=== PATIENT | female | born 1990 | race Caucasian/White ===

== ENCOUNTER 2018-04-21 21:11 | Emergency (ER) | payer SELFPAY ==
[2018-04-21 21:12] VITALS: BP 116/80; PULSE 74; RESP 18; TEMP 37; O2SAT 98; BMI 22.8
[2018-04-21 22:22] LABS: Bacteria 0 SEEN /hpf (None Seen); Mucous, Urine 0 SEEN /hpf (<or=2+); Squamous Epithelial Cells - UA 0 SEEN /hpf (5-10)
[2018-04-21 22:28] LABS: Color, Urine Yellow (Yellow); Glucose, Dipstick Normal (Normal); Ketone-Dipstick 50 mg/dl (Negative); Leukocyte Esterase-Dipstick Negative /ul (Negative); Nitrite-Dipstick Negative (Negative); Occult Blood-Urine 10 /ul (Negative); Protein-Dipstick Negative (Negative); Urine Bilirubin Dipstick Negative (Negative); Urine Clarity Clear (Clear); Urine Urobilinogen Normal (Normal)
[2018-04-21 22:32] LABS: Absolute Lymphocyte Count 0.69 X10^3/ul (0.83-4.51); Absolute Neutrophil Count 7.7 X10^3/uL (2.0-7.7); Basophil# 0.01 X10^3/uL; Basophil% 0.1 % (0-1); Hematocrit 36.9 % (37-47); Hemoglobin 12.4 g/dl (12.0-15.0); Lymphocyte # 0.69 X10^3/ul (4.0); Lymphocyte % 7.9 % (19-41); Mean Corp Hgb Conc 33.6 g/gl (32-36); Mean Corpuscular Hgb 28.5 pg (27.0-32.0); Mean Corpuscular Volume 84.8 fL (81-99); Mean Platelet Vol. 9.6 fl (6.2-12.0); Monocyte# 0.37 X10^3/uL; Monocyte% 4.2 % (0-10); Neutrophil # 7.65 X10^3/uL (2.7-7.7); Neutrophil % 87.8 % (47-70); POSITIVE COUNT NO; POSITIVE DIFFERENTIAL NO; POSITIVE MORPHOLOGY NO; Platelet Count 209 K/mm3 (150-450); RBC Distribution Width CV 14.6 % (11.6-14.6); RBC Distribution Width SD 45.4 fl (35.1-43.9); Red Blood Count 4.35 M/mm3 (4.2-5.4); White Blood Count 8.7 K/mm3 (4.4-11.0)
[2018-04-21] MEDS: 0.9% Normal Saline 1,000 ML 250 ML IV (22:34)
[2018-04-21] MEDS: Ondansetron 4 MG/2 ML Vial IV ×2 (22:34→23:30)
[2018-04-21] MEDS: Ketorolac 30 MG/ML Syringe IV (22:34)
[2018-04-21 22:52] LABS: Red Blood Cells-Urine 0-5 SEEN /hpf (0-5); White Blood Cells 0-5 SEEN /hpf (0-5)
[2018-04-21 23:07] LABS: Anion Gap 12 (5-15); BUN 17 mg/dL (7-18); BUN/Creat Ratio 16.3 RATIO (10-20); Calcium,Total 9.1 mg/dL (8.5-10.1); Chloride 101 mmol/L (98-107); Creatinine, Serum 1.04 mg/dL (0.55-1.02); EST Glomerular Filtration Rate 67 mL/min (>60); Est Glom Filt Rate - Afr Amer 81 mL/min (>60); Estimated Creatinine Clearance 69.54 ml/min; Glucose 132 mg/dL (74-106); Potassium 3.6 mmol/L (3.5-5.1); Sodium Level 137 mmol/L (136-145)
[2018-04-21 23:13] LABS: Pregnancy, Serum, hCG Quali. NEGATIVE Negative (0-9 Nonpreg)
[2018-04-21] MEDS: Morphine 4 MG/ML Syringe IV (23:30)
[2018-04-22 00:03] VITALS: RESP 16
--- NOTE | 2018-04-22 00:26 | ED.VISSUMM ---
- ER Visit Summary Date of Service: 04/22/18 Chief Complaint: Left flank pain History of Present Illness: The patient is a [address] Mondragon. She reports she has left flank pain that began 2 days ago. He got much worse yesterday. Is a dull pain is 10 out of 10 at worst and 3 at 10 currently. Is worsened by nothing. Is relieved by ibuprofen and Percocet. She was she has been nausea and vomited 4 times. No blood or emesis. Last bowel was yesterday. She has had no melena or hematochezia. She has had frequent urination, but no dysuria or hematuria. Her last menstrual period was April 09. Earlier today the patient had a CT flank at an outlying hospital that shows moderate to severe left hydronephrosis/hydroureter with a 6 x 5 mm distal calculus. There is bilateral nephrolithiasis. Physical Examination: Vitals: Stable. Afebrile. General: Well-nourished and well-developed. Head: Normocephalic atraumatic. Neck: Supple, no lymphadenopathy. No JVD. Nontender. Cardiovascular: Regular rate and rhythm. No murmurs. Respiratory: No respiratory distress. Clear to auscultation bilaterally. Abdominal: Soft, nontender, nondistended, normal bowel sounds. No guarding, rebound, or peritoneal signs. Back: Nontender. Extremities: Nontender, no edema. Skin: Normal color, no rash. Neurologic: Alert and oriented ?3. Cranial nerves II through XII are intact. Normal strength and sensation. Psych: Normal affect. Test Results: CBC is more for hematocrit 36.9, 7 neutrophils 88, lymphs lites of 8. Chem-7 more for glucose 132 and creatinine 1.04. UA shows blood and ketones. test is negative. Emergency Department Course and Treatment: Patient had an IV placed. She was given Toradol, morphine, and Zofran IV. She is resting comfortably would like to go home. Treatment Plan: Patient will had Zofran added to her Percocet and ibuprofen. Instructed follow-up with Dr. Desai in 3-5 days if she does not pass the stone. Return to emerge from if she is unable to tolerate the pain. Disposition: To home in improved and stable condition. Impression: 1. Left ureterolithiasis. This note was generated with Dragon dictation software. It may contain incorrect words, spelling, and punctuation that were not noted in review of the chart prior to signing ED Disposition - Plan for ED Patient: Chief Complaint: Flank Pain Instructions: ED Stone Renal W Colic Prescriptions: Oxycodone HCl/Acetaminophen [Percocet 5/325] 1 tablet PO Q6H PRN PRN 3 Days #12 tablet PRN Reason: Pain Ondansetron [Zofran Odt] 4 mg PO Q8H PRN PRN #10 tablet PRN Reason: Nausea Naproxen [Naprosyn] 500 mg PO BID PRN #20 tablet Referrals: Elizabeth Desai MD [STAFF PHYSICIAN] - 3-5 Days if not improving
[2018-04-22] MEDS: Ondansetron ODT 4 MG Tablet PO (00:34)
[2018-04-22 00:42] VITALS: BP 114/76; PULSE 62; RESP 18; O2SAT 97
== END 2018-04-22 00:49 | disposition home or self-care (01) ==
LOC: ED 04-22 00:05
PROVIDERS: Emergency Provider Emergency Medicine; Family Provider Physician Assistant; PCP Physician Assistant
DX: N13.2 Hydronephrosis with renal and ureteral calculous obstruction (principal); R35.0 Frequency of micturition; Z87.442 Personal history of urinary calculi
CPT/HCPCS: 80048; 81001; 84703; 85025; 96361; 96374; 96375; 96376; 99284; J7030; A4216; J2405